=== PATIENT | female | born 1980 | race Caucasian/White ===

== ENCOUNTER 2020-05-15 12:35 | Emergency (ER) | payer BC ==
[2020-05-15] MEDS ORDERED: MECLIZINE 12.5 MG TAB PO STA (13:30)
[2020-05-15] MEDS ORDERED: SODIUM CHLORIDE 0.9% 500 ML 500 ML IV STA (13:30)
[2020-05-15] MEDS ORDERED: METOCLOPRAMIDE 5 MG/ML 2 ML VIAL IVP STA (13:31)
[2020-05-15] MEDS ORDERED: diphenhydrAMINE 50 MG/ML 1 ML VIAL IVP STA (13:31)
--- NOTE | 2020-05-15 13:34 | ED ---
Dizziness HPI - General Chief Complaint: Dizziness Stated Complaint: Dizziness Time Seen by Provider: 05/15/20 13:10 Source: patient, family Mode of arrival: wheelchair Limitations: no limitations - History of Present Illness Initial Comments: patient is a 39-year-old female presenting to the emergency department with complaints of dizziness that started yesterday morning. She did go to the [facility] today and they recommended her going to the ER for further evaluation. She states she did take Dramamine today with no relief of symptoms. She states symptoms seemed to increase when she turns her head to the side. She denies any injuries or trauma. She states she's never had any like this before. She feels like she is moving, and is a constant state of nausea. She does admit to some mild right ear pain and pressure as well as some mild nasal congestion. She denies any fever or chills. She denies any abdominal pain, diarrhea. She sta prasad they did do a urine test at the [facility] and it was negative. She has no further complaints at this time. Upon arrival to the ER, vital signs are stable. - Related Data Previous Rx's Medication Instructions Recorded Amoxicillin/Potassium Clav 1 tab PO BID 5 Days #10 tab 05/15/20 [Augmentin 875-125 Tablet] Ondansetron Odt [Zofran Odt] 4 mg PO Q8HR PRN #10 tab 05/15/20 Allergies Allergy/AdvReac Type Severity Reaction Status Date / Time No Known Allergies Allergy Verified 05/15/20 12:53 Review of Systems ROS Statement: Those systems with pertinent positive or pertinent negative responses have been documented in the HPI. ROS Other: All systems not noted in ROS Statement are negative. Past Medical History Additional Past Medical History / Comment(s): ILANA History of Any Multi-Drug Resistant Organisms: None Reported Smoking Status: Never smoker Past Alcohol Use History: None Reported Past Drug Use History: None Reported General Exam - General Exam Comments Initial Comments: GENERAL: Patient is well-developed and well-nourished. Patient is nontoxic and in no acute distress. HEAD: Atraumatic, normocephalic. EYES: Pupils equal round and reactive to light, extraocular movements intact, sclera anicteric, conjunctiva are normal. Eyelids were unremarkable. ENT: Right TM is slightly erythematous and bulging, left TM is not erythematous but slightly bulging. Nares patent, oropharynx clear without exudates. Moist mucous membranes. NECK: Normal range of motion, supple without lymphadenopathy or JVD. LUNGS: Unlabored respirations. Breath sounds clear to auscultation bilaterally and equal. No wheezes rales or rhonchi. HEART: Regular rate and rhythm without murmurs, rubs or gallops. ABDOMEN: Soft, nontender, normoactive bowel sounds. No guarding, no rebound. No masses appreciated. : Deferred MUSCULOSKELETAL: Normal extremities with adequate strength and normal range of motion, no pitting or edema. No clubbing or cyanosis. NEUROLOGICAL: Patient is alert and oriented x 3. Motor and sensory are also intact. Cranial nerves II through XII grossly intact. Symmetrical smile. Normal speech, normal gait. PSYCH: Normal mood, normal affect. SKIN: Warm, Dry, normal turgor, no rashes or lesions noted. Limitations: no limitations Course Vital Signs 05/15/20 05/15/20 12:51 15:03 Temperature 97.9 F 98.1 F Pulse Rate 88 79 Respiratory 18 19 Rate Blood Pressure 130/90 126/73 O2 Sat by Pulse 98 99 Oximetry EKG Findings - EKG Comments: EKG Findings:: normal sinus rhythm, normal ECG, no signs of acute process. Ventricular rate 87, MN interval 160, QT 390. Medical Decision Making - Medical Decision Making patient is a 39-year-old female here for dizziness that started yesterday morning. She is having some ear pressure and pain and nasal congestion. She was sent from [facility]. Her vital signs are stable. Her exam is unremarkable except for what appears to be otitis media on the right side. Her EKG is normal.I did order basic lab work however when the nurse attempted to start IV, patient had a panic attack, she states she has PTSD, she would not elaborate. She declined starting an IV. Patient was given by mouth Zofran, meclizine, Benadryl. Patient was observed and she states she is feeling a little better. I discussed with patient that we can treat her for her right otitis media and she can continue with [id number] Benadryl at home for her symptoms. She may also try meclizine. I did give her ENT follow-up. Patient is agreement with this plan of care. Return parameters were discussed with the patient she verbalized understanding. - Lab Data Lab Results 05/15/20 05/15/20 Range/Units 14:09 14:09 Urine Color Light Yellow Urine Appearance Clear (Clear) Urine pH 5.5 (5.0-8.0) Ur Specific [place] 1.006 (1.001-1.035) Urine Protein Negative (Negative) Urine Glucose (UA) Negative (Negative) Urine Ketones Negative (Negative) Urine Blood Negative (Negative) Urine Nitrite Negative (Negative) Urine Bilirubin Negative (Negative) Urine Urobilinogen <2.0 (<2.0) mg/dL Ur Leukocyte Esterase Negative (Negative) Urine HCG, Qual Not Detected (Not Detectd) Disposition Clinical Impression: Right otitis media, Dizziness, Nausea Disposition: HOME SELF-CARE Condition: Stable Instructions (If sedation given, give patient instructions): Dizziness (ED) Additional Instructions: Please return to the Emergency Department if symptoms worsen or any other concerns. Take antibiotic as prescribed. May use Zofran for additional nausea. If symptoms persist follow up with ENT as discussed. Prescriptions: Amoxicillin/Potassium Clav [Augmentin 875-125 Tablet] 1 tab PO BID 5 Days #10 tab Ondansetron Odt [Zofran Odt] 4 mg PO Q8HR PRN #10 tab PRN Reason: Nausea Is patient prescribed a controlled substance at d/c from ED?: No Referrals: None,Stated [Primary Care Provider] - 1-2 days Chano Veliz DO [Doctor of Osteopathic Medicine] - 1-2 days
[2020-05-15] MEDS ORDERED: diphenhydrAMINE 50 MG CAP PO STA (14:02)
[2020-05-15] MEDS ORDERED: ONDANSETRON ODT 4 MG TAB PO STA (14:02)
[2020-05-15 15:04] VITALS: BP 126/73; PULSE 79; RESP 19; TEMP 98.1
[2020-05-15 15:12] LABS: Appearance,Urine Clear (Clear); Bilirubin,Urine Negative (Negative); Blood,Urine Negative (Negative); Color,Urine Light Yellow; Glucose,Urine (UA) Negative (Negative); Ketones,Urine Negative (Negative); Leukocyte Esterase,Urine Negative (Negative); Nitrite,Urine Negative (Negative); PH, Urine 5.5 (5.0-8.0); Protein,Urine Negative (Negative); Specific Gravity,Urine 1.006 (1.001-1.035); Urobilinogen,Urine <2.0 mg/dL (<2.0)
== END 2020-05-15 15:03 | disposition home or self-care (01) ==
LOC: EC 12:35
DX: H66.91 Otitis media, unspecified, right ear (principal); R42 Dizziness and giddiness; R11.0 Nausea; F43.10 Post-traumatic stress disorder, unspecified
CPT/HCPCS: 81003; 81025; 93005; 99284

== ENCOUNTER → 2020-08-10 | Outpatient (CLI) | payer BC ==
--- NOTE | 2020-08-10 17:09 | US ---
EXAMINATION TYPE: US thyroid st tissue head/neck DATE OF EXAM: 08/10/2020 COMPARISON: NONE CLINICAL HISTORY: E04.1 Thyroid nodule. assess for thyroidomegaly GLAND SIZE: Right Lobe: 4.5 x 1.6 x 1.6 cm Overall Parenchyma: homogenous Left Lobe: 3.5 x 0.9 x 1.5 cm Overall Parenchyma: homogeneous Isthmus Thickness: 0.3 cm NODULES RIGHT: # of nodules measured on right: 0 LEFT: # of nodules measured on left: 0 ISTHMUS: # of nodules measured in the isthmus: 0 Bilateral neck scanned, no evidence of lymphadenopathy. IMPRESSION: Normal thyroid ultrasound
== END | disposition home or self-care (01) ==
LOC: RADUSWWP 16:36
PROVIDERS: ATTEND Otolaryngology
DX: E04.1 Nontoxic single thyroid nodule (principal)
CPT/HCPCS: 76536

== ENCOUNTER → 2020-09-05 | Outpatient (CLI) | payer BC ==
--- NOTE | 2020-09-05 15:44 | CT ---
EXAMINATION TYPE: CT sinus wo con DATE OF EXAM: 09/05/2020 COMPARISON: NONE HISTORY: sinus congestion, loss of balance, ear pain. Chronic sinusitis per order. CT DLP: 399.6 mGycm. Automated Exposure Control for Dose Reduction was Utilized. TECHNIQUE: CT scan of the sinuses is performed without contrast, axial images are obtained, coronal r eformatted images are also reviewed. FINDINGS: The paranasal sinuses including the frontal, ethmoid, sphenoid, and maxillary sinuses bila terally are well-aerated without abnormal opacification. The ostiomeatal complex is patent bilateral ly on coronal image 28. Nasal septum is deviated to right of midline. The globes are intact bilaterally. Visualized portion of brain parenchyma is unremarkable. IMPRESSION: The sinuses are clear and the ostiomeatal complex is patent bilaterally.
--- NOTE | 2020-09-05 15:47 | CT ---
EXAMINATION TYPE: CT iac wo con DATE OF EXAM: 09/05/2020 COMPARISON: NONE HISTORY: sinus congestion, loss of balance, ear pain. Chronic sinusitis. CT DLP: 166.9 mGycm. Automated Exposure Control for Dose Reduction was Utilized. TECHNIQUE: CT scan of internal auditory canal is performed without contrast, thin cut axial images ar e obtained, coronal reformatted images are also reviewed. FINDINGS: The external auditory canals are patent bilaterally. Mastoid air cells show no evidence of abnormal opacification bilaterally. The middle ear ossicles are symmetric and unremarkable. There is no evidence of suspicious surroundi ng soft tissue density to suggest cholesteatoma. The scutum is preserved bilaterally. The cochlea and the semicircular canals are symmetric and unremarkable. Bony overgrowth superior semi circular canal is maintained bilaterally. Vestibular aqueduct and internal carotid canal appear unre markable. Temporomandibular joints are maintained bilaterally. Visualized paranasal sinuses are grossly clear. Visualized portion brain parenchyma is felt within normal limits. IMPRESSION: No significant abnormality seen to account for patient's symptoms.
== END | disposition home or self-care (01) ==
LOC: RADCTMAIN 14:54
PROVIDERS: ATTEND Otolaryngology
DX: J32.9 Chronic sinusitis, unspecified (principal); H92.01 Otalgia, right ear
CPT/HCPCS: 70480; 70486

== ENCOUNTER → 2020-10-19 | Outpatient (CLI) | payer BC ==
--- NOTE | 2020-10-19 22:21 | CONS ---
CONSULTATION DATE OF SERVICE: 10/19/2020 This 40-year-old lady has been [facility] for obstructive sleep apnea- hypopnea syndrome. HISTORY OF PRESENT ILLNESS/SLEEP-WAKE EVALUATION: The patient was diagnosed with obstructive sleep apnea about 1-1/2 years ago while she was in [place]. According to the patient, at that time she had a sleep study in the office and CPAP titration. She received her CPAP unit and she is continuing to use her CPAP equipment every night. But at present, according to the patient, even if she is using her machine she still snores and has episodes of stopped breathing during sleep. Her sleep schedule is from 10 p.m. to 7 or 8 a.m. on working days and from 10 p.m. to 2 p.m. on weekends. She is grinding her teeth and she has episodes of gasping for air, according to the patient, again while she is using her CPAP. I checked her CPAP unit. CPAP pressure is 5 cm of water. Usage is 26/30 nights, and 22/30 nights for more than 4 hours. Leak is only 7 L/minute. Apnea-hypopnea index is only 1.4, which is in normal range. Patient's weight increased, according to her, by about 80 pounds since she started treatment with CPAP. PAST MEDICAL HISTORY: Positive for ADD, hypothyroidism, diabetes, moles. Also depression, per the patient. PAST SURGICAL HISTORY: Surgery for moles, cervical biopsy, uterine biopsy. MEDICATIONS: 1. Duloxetine 60 mg once a day. 2. Vyvanse 30 mg on p.r.n. basis. 3. Levothyroxine 10 once a day. 4. Metformin twice a day. The patient did not indicate the dose. SOCIAL HISTORY: Negative for smoking or using alcohol. FAMILY HISTORY: Positive for hypertension, diabetes. REVIEW OF SYSTEMS: Snoring and episodes of gasping for air while using CPAP.. PHYSICAL EXAMINATION: GENERAL: A pleasant lady without distress. VITAL SIGNS: BP 121/84, HR 92, RR 15, height 5 feet 4 inches, weight 221.8, temperature 98.4, oxygen saturation at room air 98%. HEENT: PERRLA, EOMI. Evaluation of oropharynx showed tongue protrudes midline. Low position of soft palate. NECK: Supple. No JVD. Thyroid is not palpable. Wide neck; 17 inches in circumference. LUNGS: Clear to percussion and to auscultation. Good air exchange. No wheezing or rhonchi. HEART: S1, S2 regular. No murmurs, gallops or rubs. ABDOMEN: Obese. EXTREMITIES: No clubbing or cyanosis. CARBIDE POWDER PROCESSOR: Awake, alert, and oriented X3. Cranial nerves 2 to 7 intact. There is no fasciculation or atrophy. noted. No focal deficits observed. IMPRESSION: 1. History of obstructive sleep apnea-hypopnea syndrome for 1-1/2 years. The patient continues to use her CPAP equipment every night but snores with CPAP and has episodes of gasping for air on CPAP. Checking her CPAP unit showed good compliance. 2. Obesity. Patient's weight increased by about 80 pounds since previous sleep study in another institution in [place]. 3. History of attention deficit hyperactivity disorder. 4. History of depression. 5. Hypothyroidism. 6. Pre-diabetes mellitus. PLAN: 1. I adjusted the CPAP pressure up to 9 cm of water. The patient's CPAP unit does not have options for AutoPAP. I increased flex to 3. 2. The patient will continue to use her CPAP equipment every night for the whole night. 3. Losing weight. 4. Sleep hygiene with regular time in bed for at least 7-1/2 to 8 hours. 5. No driving if feeling any sleepiness. 6. I will see the patient for follow-up visit in 2 months to evaluate her clinical response on treatment because I changed the pressure in her CPAP unit; to review results of her sleep studies. We will get her sleep studies from [place]. 7. If the patient continues to have symptoms of significant excessive daytime sleepiness like today, when her [place] Sleepiness Scale is 17, she could be a candidate for a multiple sleep latency test. Her [place] Sleepiness Scale is 17 while she is on Vyvanse 30 mg a day. The patient also sleeps on weekends from 10 p.m. to 2 p.m. the next day, which may indicate possibility of idiopathic hypersomnia or could be related to non-effective treatment of her sleep apnea. Thank you very much for allowing me to participate in the management of your patient. Sincerely, Manoj Mcneill MD, PhD, FAASM Diplomat of [place] [employer] [place] [employer] [facility] [place] MMODL / [place]LEY: [id number] /
== END | disposition home or self-care (01) ==
LOC: SLEEP 16:52
PROVIDERS: ATTEND Internal Medicine
DX: G47.33 Obstructive sleep apnea (adult) (pediatric) (principal); E03.9 Hypothyroidism, unspecified; R73.03 Prediabetes; E66.9 Obesity, unspecified; Z86.59 Personal history of other mental and behavioral disorders; Z99.89 Dependence on other enabling machines and devices; Z79.890 Hormone replacement therapy; Z79.84 Long term (current) use of oral hypoglycemic drugs
CPT/HCPCS: 99211

== ENCOUNTER 2022-01-25 11:30 | Emergency (ER) | payer BC ==
--- NOTE | 2022-01-25 12:33 | ED ---
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 Patient states that she does have some children out sick but she denies any fevers, nausea or vomiting she does state that she has chest heaviness and shortness of breath. She states that she has a history of childhood asthma but has not had any asthma symptoms as an adult. She does have history of anxiety and takes anxiolytics. She states that she is not sure if this is a panic attack, viral illness or her heart. She is a nonsmoker. No family history of cardiac disease. -: days(s) (1) Location: chest Radiation: non-radiation Quality: other (heavy) Consistency: constant Improves with: none Worsens with: none Associated Symptoms: shortness of breath Treatments Prior to Arrival: none - Related Data Home Medications Medication Instructions Recorded Confirmed ARIPiprazole [Abilify] 10 mg PO DAILY 01/25/22 01/25/22 DULoxetine HCL [Cymbalta] 60 mg PO DAILY 01/25/22 01/25/22 Ergocalciferol [Vitamin D2 (1250 1,250 mcg PO MO 01/25/22 01/25/22 Mcg = 11829 Iu)] Estrogen,Con/M-Progest Acet 1 tab PO DAILY 01/25/22 01/25/22 [Prempro 0.625-5 mg Tablet] Levothyroxine Sodium [Levoxyl] 50 mcg PO HS 01/25/22 01/25/22 Lisdexamfetamine Dimesylate 30 mg PO DAILY 01/25/22 01/25/22 [Vyvanse] [place]-3 Fatty Acids [[place]-3] 1,000 mg PO DAILY 01/25/22 01/25/22 Allergies Allergy/AdvReac Type Severity Reaction Status Date / Time No Known Allergies Allergy Verified 01/25/22 13:37 Review of Systems ROS Statement: Those systems with pertinent positive or pertinent negative responses have been documented in the HPI. ROS Other: All systems not noted in ROS Statement are negative. Past Medical History Past Medical History: Asthma Additional Past Medical History / Comment(s): ILANA History of Any Multi-Drug Resistant Organisms: None Reported Past Surgical History: No Surgical Hx Reported Past Psychological History: Anxiety, Depression Smoking Status: Never smoker Past Alcohol Use History: None Reported Past Drug Use History: None Reported General Exam Limitations: no limitations General appearance: alert, in no apparent distress Head exam: Present: atraumatic Eye exam: Present: normal appearance ENT exam: Present: normal oropharynx, mucous membranes moist Neck exam: Present: full ROM. Absent: tenderness, meningismus, lymphadenopathy, thyromegaly Respiratory exam: Present: normal lung sounds bilaterally. Absent: respiratory distress, chest wall tenderness, accessory muscle use Cardiovascular Exam: Present: regular rate, normal heart sounds. Absent: JVD GI/Abdominal exam: Present: soft. Absent: distended, tenderness Extremities exam: Present: normal inspection, full ROM, normal capillary refill. Absent: pedal edema Back exam: Present: normal inspection, full ROM. Absent: tenderness, CVA tenderness (R), CVA tenderness (L), rash noted Neurological exam: Present: alert, oriented X3, normal gait Psychiatric exam: Present: normal affect, normal mood Skin exam: Present: warm, dry, intact, normal color. Absent: rash, cyanosis, diaphoretic, petechiae, pallor Course Vital Signs 01/25/22 01/25/22 11:31 13:06 Temperature 97.7 F Pulse Rate 85 78 Respiratory 20 18 Rate Blood Pressure 114/76 117/70 O2 Sat by Pulse 100 98 Oximetry EKG Findings - EKG Results: EKG: sinus rhythm (Ventricular rate of 80, AR 0.16, QRS 0.89, QTC 0.400) Medical Decision Making - Medical Decision Making Chest x-ray shows no acute cardiopulmonary disease. Lungs sounds are clear to auscultation oxygen saturation 98% on room air. There is no evidence of leukocytosis, hemoglobin and hematocrit are stable. Troponin is negative at 0.012 EKG shows sinus rhythm with no ST elevation. Patient is positive for influenza A and coronavirus. She was directed to self quarantine and encouraged to increase her fluid intake. Take Tylenol and Motrin as needed for pain or fevers. Patient is agreeable to this plan of care. - Lab Data Result diagrams: 01/25/22 12:56 01/25/22 12:56 Lab Results 01/25/22 01/25/22 01/25/22 Range/Units 12:56 12:56 12:56 WBC 8.0 (3.8-10.6) k/uL RBC 4.01 (3.80-5.40) m/uL Hgb 14.1 (11.4-16.0) gm/dL Hct 40.9 (34.0-46.0) % MCV 101.9 H (80.0-100.0) fL MCH 35.2 H (25.0-35.0) pg MCHC 34.6 (31.0-37.0) g/dL RDW 11.0 L (11.5-15.5) % Plt Count 291 (150-450) k/uL MPV 7.4 Neutrophils % 62 % Lymphocytes % 30 % Monocytes % 4 % Eosinophils % 3 % Basophils % 1 % Neutrophils # 4.9 (1.3-7.7) k/uL Lymphocytes # 2.4 (1.0-4.8) k/uL Monocytes # 0.3 (0-1.0) k/uL Eosinophils # 0.2 (0-0.7) k/uL Basophils # 0.0 (0-0.2) k/uL PT 9.9 (9.0-12.0) sec INR 0.9 (<1.2) APTT 25.2 (22.0-30.0) sec Sodium 139 (137-145) mmol/L Potassium 3.9 (3.5-5.1) mmol/L Chloride 103 (98-107) mmol/L Carbon Dioxide 27 (22-30) mmol/L Anion Gap 9 mmol/L BUN 20 H (7-17) mg/dL Creatinine 0.77 (0.52-1.04) mg/dL Est GFR (CKD-EPI)AfAm >90 (>60 ml/min/1.73 sqM) Est GFR (CKD-EPI)NonAf >90 (>60 ml/min/1.73 sqM) Glucose 96 (74-99) mg/dL Calcium 9.6 (8.4-10.2) mg/dL Magnesium 2.0 (1.6-2.3) mg/dL Total Bilirubin 0.5 (0.2-1.3) mg/dL AST 22 (14-36) U/L ALT 14 (4-34) U/L Alkaline Phosphatase 53 (38-126) U/L Troponin I (0.000-0.034) ng/mL Total Protein 7.1 (6.3-8.2) g/dL Albumin 4.3 (3.5-5.0) g/dL Influenza Type A (PCR) (Not Detectd) Influenza Type B (PCR) (Not Detectd) RSV (PCR) (Not Detectd) SARS-CoV-2 (PCR) (Not Detectd) 01/25/22 01/25/22 Range/Units 12:56 12:56 WBC (3.8-10.6) k/uL RBC (3.80-5.40) m/uL Hgb (11.4-16.0) gm/dL Hct (34.0-46.0) % MCV (80.0-100.0) fL MCH (25.0-35.0) pg MCHC (31.0-37.0) g/dL RDW (11.5-15.5) % Plt Count (150-450) k/uL MPV Neutrophils % % Lymphocytes % % Monocytes % % Eosinophils % % Basophils % % Neutrophils # (1.3-7.7) k/uL Lymphocytes # (1.0-4.8) k/uL Monocytes # (0-1.0) k/uL Eosinophils # (0-0.7) k/uL Basophils # (0-0.2) k/uL PT (9.0-12.0) sec INR (<1.2) APTT (22.0-30.0) sec Sodium (137-145) mmol/L Potassium (3.5-5.1) mmol/L Chloride (98-107) mmol/L Carbon Dioxide (22-30) mmol/L Anion Gap mmol/L BUN (7-17) mg/dL Creatinine (0.52-1.04) mg/dL Est GFR (CKD-EPI)AfAm (>60 ml/min/1.73 sqM) Est GFR (CKD-EPI)NonAf (>60 ml/min/1.73 sqM) Glucose (74-99) mg/dL Calcium (8.4-10.2) mg/dL Magnesium (1.6-2.3) mg/dL Total Bilirubin (0.2-1.3) mg/dL AST (14-36) U/L ALT (4-34) U/L Alkaline Phosphatase (38-126) U/L Troponin I <0.012 (0.000-0.034) ng/mL Total Protein (6.3-8.2) g/dL Albumin (3.5-5.0) g/dL Influenza Type A (PCR) Detected A (Not Detectd) Influenza Type B (PCR) Not Detected (Not Detectd) RSV (PCR) Not Detected (Not Detectd) SARS-CoV-2 (PCR) Detected A (Not Detectd) Disposition Clinical Impression: COVID-19, Influenza A Disposition: HOME SELF-CARE Condition: Good Instructions (If sedation given, give patient instructions): Influenza (ED), COVID-19 (Coronavirus Disease 2019) (ED) Additional Instructions: Increase fluid intake, Tylenol and or Motrin as needed for body aches pains or fevers. Self quarantine for 5 days from symptom onset. If no symptoms after the initial 5 days, you can go into public with just a mask. You can take vitamin C, vitamin D and zinc to improve your Immune health. Return to the emergency room with any new or concerning symptoms including increased chest pain, difficulty breathing or persistent nausea vomiting. Is patient prescribed a controlled substance at d/c from ED?: No Referrals: Tania Aaron MD [Primary Care Provider] - 1-2 days Time of Disposition: 14:40
[2022-01-25] MEDS ORDERED: SODIUM CHLORIDE 0.9% 1,000 ML IV STA (12:47)
[2022-01-25] MEDS ORDERED: LORazepam 2 MG/ML INJ IV STA (12:54)
[2022-01-25 13:18] LABS: Basophils % (A) 1 %; Eosinophils # (A) 0.2 k/uL (0-0.7); Eosinophils % (A) 3 %; HCT 40.9 % (34.0-46.0); HGB 14.1 gm/dL (11.4-16.0); Lymphocytes # (A) 2.4 k/uL (1.0-4.8); Lymphocytes % (A) 30 %; MCH 35.2 pg (25.0-35.0); MCHC 34.6 g/dL (31.0-37.0); MCV 101.9 fL (80.0-100.0); Mean Platelet Volume 7.4; Monocytes # (A) 0.3 k/uL (0-1.0); Monocytes % (A) 4 %; Neutrophils # (A) 4.9 k/uL (1.3-7.7); Neutrophils % (A) 62 %; Platelet Count 291 k/uL (150-450); RBC 4.01 m/uL (3.80-5.40)
[2022-01-25 13:24] LABS: Potassium 3.9 mmol/L (3.5-5.1)
[2022-01-25 13:26] LABS: ALT 14 U/L (4-34); AST 22 U/L (14-36); African American GFR (CKD) >90 (>60 ml/min/1.73 sqM); Albumin 4.3 g/dL (3.5-5.0); Alkaline Phosphatase 53 U/L (38-126); Blood Urea Nitrogen 20 mg/dL (7-17); Carbon Dioxide 27 mmol/L (22-30); Chloride 103 mmol/L (98-107); Glucose 96 mg/dL (74-99); Non-African American GFR(CKD) >90 (>60 ml/min/1.73 sqM); Total Bilirubin 0.5 mg/dL (0.2-1.3); Total Protein 7.1 g/dL (6.3-8.2)
--- NOTE | 2022-01-25 13:26 | XR ---
EXAMINATION TYPE: XR chest 2V DATE OF EXAM: 01/25/2022 COMPARISON: NONE HISTORY: Chest pain TECHNIQUE: Frontal and lateral views of the chest are obtained. FINDINGS: There is no focal air space opacity. No evidence for pneumothorax. No pleural effusion. The cardiac silhouette size is within normal limits. The osseous structures are grossly intact. IMPRESSION: 1. No acute cardiopulmonary process.
[2022-01-25 13:28] LABS: Anion Gap 9 mmol/L; Calcium 9.6 mg/dL (8.4-10.2); Sodium 139 mmol/L (137-145)
[2022-01-25 13:34] LABS: INR 0.9 (<1.2); Partial Thromboplastin Time 25.2 sec (22.0-30.0); Prothrombin Time 9.9 sec (9.0-12.0)
[2022-01-25 14:57] VITALS: BP 116/68; PULSE 86; RESP 20; TEMP 98.8
== END 2022-01-25 14:57 | disposition home or self-care (01) ==
LOC: EC 11:30
DX: U07.1 COVID-19 (principal); J10.1 Influenza due to other identified influenza virus with other respiratory manifestations; J45.909 Unspecified asthma, uncomplicated; F32.A Depression, unspecified; F41.9 Anxiety disorder, unspecified; Z79.899 Other long term (current) drug therapy
CPT/HCPCS: 36415; 93005; 80053; 83735; 84484; 85025; 85610; 85730; 87636; 71046; 99285; 96374; 96361 ×2; J2060

== ENCOUNTER → 2023-03-13 | Outpatient (CLI) | payer BC ==
[2023-03-14 03:03] LABS: Estradiol 37.2 pg/mL
== END | disposition home or self-care (01) ==
LOC: LABWHC1 16:27
PROVIDERS: ATTEND Family Medicine
DX: E28.319 Asymptomatic premature menopause (principal)
CPT/HCPCS: 36415; 82533; 82626; 82670; 84144; 84403

== ENCOUNTER → 2023-03-19 | Outpatient (CLI) | payer BC ==
--- NOTE | 2023-03-19 15:30 | MM ---
Reason for Exam: Screening (asymptomatic). Patient History: Menarche at age 16. First Full-Term at age 30. Postmenopausal. Patient has history of breast feeding. Currently using Estrogen and Progesterone, for 6 months. Risk Values: Sonal 5 year model risk: 0.6%. NCI Lifetime model risk: 10.2%. Tissue Density: The breast tissue is heterogeneously dense. This may lower the sensitivity of mammography. Findings: Analyzed By CAD. There is no suspicious group of microcalcifications or new suspicious mass in either breast. Overall Assessment: Negative, BI-RAD 1 Management: Screening Mammogram of both breasts in [address] [facility] will attempt to contact patient to return for supplemental views and ultrasound if indicated. Patient should continue monthly self-breast exams. A clinical breast exam by your physician is recommended on an annual basis. This exam should not preclude additional follow-up of suspicious palpable abnormalities. Note on Sonal scores and lifetime risk: 1. A Sonal score greater than 3% is considered moderate risk. If this is the case, consider specialist referral to assess eligibility for a risk reducing agent. 2. If overall lifetime risk for the development of breast cancer is 20% or higher, the patient may qualify for future screening with alternating mammogram and breast MRI. Electronically signed and approved by: Mario Nayak DO
== END | disposition home or self-care (01) ==
LOC: RADMAMWWP 13:19
PROVIDERS: ATTEND Family Medicine
DX: Z12.31 Encounter for screening mammogram for malignant neoplasm of breast (principal); Z78.0 Asymptomatic menopausal state
CPT/HCPCS: 77063; 77067

== ENCOUNTER → 2023-04-04 | Outpatient (CLI) | payer BC ==
[2023-04-04 18:39] LABS: Chol/HDL Ratio 5.27 Ratio; LDL Cholesterol,Calculated 176.7 mg/dL (0.0-131.0)
== END | disposition home or self-care (01) ==
LOC: LABWHC1 09:24
PROVIDERS: ATTEND Family Medicine
DX: E63.9 Nutritional deficiency, unspecified (principal)
CPT/HCPCS: 36415; 80061; 82306; 82533; 82607; 82626; 83036; 84140; 84207; 84425

== ENCOUNTER → 2023-09-23 | Outpatient (CLI) | payer BC ==
[2023-09-23 15:36] LABS: Estradiol <20.0 pg/mL
== END | disposition home or self-care (01) ==
LOC: LABWHC1 12:07
PROVIDERS: ATTEND Family Medicine
DX: E27.40 Unspecified adrenocortical insufficiency (principal)
CPT/HCPCS: 36415; 82533; 82626; 82670; 84140; 84144

== ENCOUNTER → 2024-03-12 | Outpatient (CLI) | payer BC ==
[2024-03-12 15:51] LABS: Progesterone 3.8 ng/mL
[2024-03-12 15:59] LABS: Estradiol 24.5 pg/mL; Magnesium 1.9 mg/dL (1.5-2.4)
== END | disposition home or self-care (01) ==
LOC: LABWHC1 08:28
PROVIDERS: ATTEND Family Medicine
DX: E27.40 Unspecified adrenocortical insufficiency (principal); L68.0 Hirsutism; G43.709 Chronic migraine without aura, not intractable, without status migrainosus; Z79.890 Hormone replacement therapy
CPT/HCPCS: 36415; 82306; 82533; 82626; 82670; 83525; 83735; 84140; 84144

== ENCOUNTER → 2024-04-07 | Outpatient (CLI) | payer BC ==
--- NOTE | 2024-04-07 09:37 | MR ---
INDICATION: Patient age:Female; 43 years old; Reason for study: G43.909 MIGRAINE, UNSP, NOT INTRACTABLE, WITHOUT S; PHH. COMPARISON: CT sinus and IAC 09/05/2020. TECHNIQUE: Multi planar, multi sequence imaging was performed through the brain before and after the uneventful administration of 9 cc of Gadavist intravenously. FINDINGS: The nagel-white junctions, ventricular system, basal cisterns appear unremarkable. Diffusion-weighted imaging shows no evidence of restricted diffusion to suggest acute/subacute infarct. Intracranial art erial flow voids are maintained. Midline structures show no abnormality. The susceptibility weighted images do not reveal any evidence for micro-hemorrhage. After administration of gadolinium, no abnorm al enhancement is seen. The bone marrow signal is within normal limits. The globes are unremarkable. Minimal mucosal thicken ing of the left maxillary sinus. The remaining paranasal sinuses are clear. IMPRESSION: No evidence of intracranial mass, acute/subacute infarct, or abnormal enhancement.
== END | disposition home or self-care (01) ==
LOC: RADMRIMAIN 07:37
PROVIDERS: ATTEND Family Medicine
DX: G43.909 Migraine, unspecified, not intractable, without status migrainosus (principal); R42 Dizziness and giddiness
CPT/HCPCS: 70553; A9585

== ENCOUNTER → 2024-04-19 | Outpatient (CLI) | payer BC ==
--- NOTE | 2024-04-20 10:26 | MM ---
Reason for Exam: Screening (asymptomatic). Last mammogram was performed 1 year(s) and 1 month(s) ago. Patient History: Menarche at age 16. First Full-Term at age 30. Postmenopausal. Patient has history of breast feeding. Currently using Estrogen and Progesterone, for 6 months. Risk Values: Sonal 5 year model risk: 0.6%. NCI Lifetime model risk: 10.1%. Prior Study Comparison: 03/19/2023 Bilateral MG 3D screening mammo w/cad, [facility]. Tissue Density: There are scattered areas of fibroglandular density. Findings: Analyzed By CAD. Right breast: There is no suspicious group of microcalcifications or new suspicious mass. Left breast: There is no suspicious group of microcalcifications or new suspicious mass. Overall Assessment: Negative, BI-RAD 1 Management: Screening Mammogram of both breasts in [address] [facility] will attempt to contact patient to return for supplemental views and ultrasound if indicated. Patient should continue monthly self-breast exams. A clinical breast exam by your physician is recommended on an annual basis. This exam should not preclude additional follow-up of suspicious palpable abnormalities. Note on Sonal scores and lifetime risk: 1. A Sonal score greater than 3% is considered moderate risk. If this is the case, consider specialist referral to assess eligibility for a risk reducing agent. 2. If overall lifetime risk for the development of breast cancer is 20% or higher, the patient may qualify for future screening with alternating mammogram and breast MRI. Electronically signed and approved by: Mario Nayak DO
== END | disposition home or self-care (01) ==
LOC: RADMAMWWP 15:48
PROVIDERS: ATTEND Family Medicine
DX: Z12.31 Encounter for screening mammogram for malignant neoplasm of breast (principal); R92.323 Mammographic fibroglandular density, bilateral breasts; Z78.0 Asymptomatic menopausal state
CPT/HCPCS: 77063; 77067

== ENCOUNTER 2024-08-10 15:01 | Emergency (ER) | payer OTHER, BC ==
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
[2024-08-10 15:49] VITALS: RESP 18
[2024-08-10] MEDS: DIPH,PERTUS(ACELL)TETVAC-LF 0.5 ML VIAL IM ONE (16:15)
[2024-08-10 16:27] VITALS: BP 105/81; PULSE 90; TEMP 98.7
== END 2024-08-10 17:22 | disposition home or self-care (01) ==
LOC: EC 15:01
DX: S61.551A Open bite of right wrist, initial encounter (principal); Z23 Encounter for immunization; Y04.1XXA Assault by human bite, initial encounter
CPT/HCPCS: 90471; 90715; 99283

== ENCOUNTER → 2024-10-09 | Outpatient (CLI) | payer BC ==
[2024-10-10 10:24] LABS: Estradiol 41.5 pg/mL; Testosterone <10.00 ng/dL (9.01-47.94)
== END | disposition home or self-care (01) ==
LOC: LABWHC1 10:35
PROVIDERS: ATTEND Family Medicine
DX: E27.1 Primary adrenocortical insufficiency (principal)
CPT/HCPCS: 36415; 82626; 82670; 84140; 84144; 84403

== ENCOUNTER 2025-03-01 12:54 | Emergency (ER) | payer OTHER, BC ==
[2025-03-01 12:59] VITALS: RESP 16
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
[2025-03-01 14:26] VITALS: BP 109/76; PULSE 82; TEMP 97.9
[2025-03-01 21:26] LABS: Hepatitis B Surface Antigen Nonreactive (Nonreactive); Hepatitis C IgG Antibody Nonreactive (Nonreactive)
[2025-03-01 21:33] LABS: HIV 2 AB Non-Reactive (Non-Reactive); HIV AB P24 Non-Reactive (Non-Reactive); HIV P24 AG Non-Reactive (Non-Reactive)
[2025-03-01 22:18] LABS: Hepatitis B Surface AB- Quant 24.7 mIU/mL
== END 2025-03-01 14:26 | disposition home or self-care (01) ==
LOC: EC 12:54
DX: S61.451A Open bite of right hand, initial encounter (principal); X58.XXXA Exposure to other specified factors, initial encounter; Y04.1XXA Assault by human bite, initial encounter; Y92.219 Unspecified school as the place of occurrence of the external cause
CPT/HCPCS: 36415; 86704; 86706; 86803; 87340; 87390; 99283